=== PATIENT | male | born 1995 | race Two or more races ===

== ENCOUNTER 2019-01-25 16:43 | Emergency (ER) | payer SELFPAY ==
[~2019-01-25] VITALS: Ht 180.3 cm; Wt 86.2 kg
[2019-01-25 17:13] VITALS: BP 124/70
[2019-01-25] MEDS ORDERED: Ketorolac 30mg Inj IV ONE (17:30)
[2019-01-25 18:20] LABS: APPEARANCE,URINE CLEAR; BILIRUBIN, URINE NEGATIVE (NEGATIVE); COLOR,URINE PALE YELLOW; GLUCOSE, URINE (UA) NEGATIVE (NEGATIVE); KETONES,URINE NEGATIVE (NEGATIVE); LEUKOCYTE ESTERASE ,URINE 1+ (NEGATIVE); NITRITE,URINE NEGATIVE (NEGATIVE); PH,URINE 6 (4.5-8.0); PROTEIN,URINE NEGATIVE (NEGATIVE); UROBILINOGEN,URINE NORMAL MG/DL (0.0-1.0)
[2019-01-25 18:23] LABS: ANION GAP 6 mmol/L (5-15); BLOOD UREA NITROGEN 21 mg/dL (7-18); CALCIUM 9.1 MG/DL (8.5-10.1); CARBON DIOXIDE 29 MMOL/L (21-32); CHLORIDE 102 MMOL/L (98-107); CREATININE 0.9 MG/DL (0.55-1.30); POTASSIUM 3.8 MMOL/L (3.5-5.1); SODIUM 137 MMOL/L (136-145)
[2019-01-25 18:26] LABS: BASOPHILS % (AUTO) 1.9 % (0.0-2.0); EOSINOPHILS % (AUTO) 7.1 % (0.0-3.0); HEMATOCRIT 44.2 % (42.0-52.0); HEMOGLOBIN 15.3 G/DL (14.2-18.0); LYMPHOCYTES % (AUTO) 31.9 % (20.0-45.0); MEAN CORPUSCULAR VOLUME 88 FL (80-99); MONOCYTES % (AUTO) 10.2 % (1.0-10.0); NEUTROPHILS % (AUTO) 48.9 % (45.0-75.0); PLATELET COUNT 244 K/UL (150-450); RED BLOOD COUNT 5.04 M/UL (4.70-6.10); RED CELL DISTRIBUTION WIDTH 12.1 % (11.6-14.8); WHITE BLOOD COUNT 7.3 K/UL (4.8-10.8)
[2019-01-25 18:33] LABS: ALANINE AMINOTRANSFERASE 41 U/L (12-78); ALBUMIN 4.1 G/DL (3.4-5.0); ALBUMIN/GLOBULIN RATIO 1.2 (1.0-2.7); ALKALINE PHOSPHATASE 68 U/L (46-116); ASPARTATE AMINO TRANSFERASE 25 U/L (15-37); BILIRUBIN,TOTAL 0.5 MG/DL (0.2-1.0)
[2019-01-25] MEDS ORDERED: TYLENOL EXTRA500 MG ORAL (18:46)
[2019-01-25] MEDS ORDERED: ROBAXIN-500MG ORAL (18:46)
[2019-01-25] MEDS ORDERED: LIDODERM700 M1 TOPIC (18:46)
--- NOTE | 2019-01-25 18:46 | Emergency Room Report ---
History of Present Illness General Chief Complaint: Abdominal Pain Source: Patient Present Illness HPI 23-year-old male with no significant past medical history here complaining of 2 months of right-sided low back pain rating it 5 out of 10, intermittent, with no radiation. Denies any fall or injury, or strenuous physical activity. Has not taken medication for symptom relief. Also complains of 1 week of diffuse abdominal pain mainly in the epigastric and right lower quadrant. Denies nausea and vomiting, acid reflux, diarrhea and constipation. Denies blood in stool. Reports that he often feels fluctuant and consumes a lot of street food especially tacos. Denies fever and chills, recent travel, does admit to daily tobacco smoking marijuana use. Denies alcohol intake. Denies urinary symptoms. Patient appears to be under the influence of unknown substance. Vitals are within normal limits. After I was about to discharge the patient patient also mentions that he has recently been sexually active unprotected, denies any vaginal discharge however complains of feeling weird and as if something is off when he is urinating. He request to be treated for chlamydia and gonorrhea but is unsure if his sexual partner is positive for any sexually transmitted diseases. Allergies: Coded Allergies: PENICILLINS (Verified Allergy, Unknown, 01/25/19) Patient History Past Medical History: see triage record Past Surgical History: none Pertinent Family History: none Social History: Reports: smoking - daily tobacco smoke, drug use - marijuana Immunizations: UTD Reviewed Nursing Documentation: PMH: Agreed; PSxH: Agreed Nursing Documentation-PMH Past Medical History: No History, Except For Hx Asthma: Yes Review of Systems All Other Systems: negative except mentioned in HPI Physical Exam Vital Signs Date Time Temp Pulse Resp B/P (MAP) Pulse Ox O2 Delivery O2 Flow Rate FiO2 01/25/19 16:52 97.9 74 16 124/70 (88) 98 Room Air Sp02 EP Interpretation: reviewed, normal General Appearance: no apparent distress, alert, GCS 15, non-toxic Head: normocephalic, atraumatic Eyes: bilateral eye normal inspection, bilateral eye PERRL ENT: hearing grossly normal, normal pharynx, no angioedema, normal voice Neck: full range of motion, supple, no meningismus, supple/symm/no masses Respiratory: chest non-tender, lungs clear, normal breath sounds, no rhonchi, no respiratory distress, no retraction, no wheezing, speaking full sentences Cardiovascular #1: regular rate, rhythm, no edema, no JVD Gastrointestinal: normal bowel sounds, non tender, soft, no mass, no organomegaly, no peritonitis, no bruit, non-distended, no guarding, no hernia, no pulsatile mass, no rebound Rectal: deferred Genitourinary: no CVA tenderness Musculoskeletal: back normal, normal range of motion, no calf tenderness, gait/ station normal, non-tender Neurologic: alert, motor strength/tone normal, oriented x3, sensory intact, responsive, speech normal Psychiatric: judgement/insight normal, memory normal, mood/affect normal, no suicidal/homicidal ideation Skin: no rash Lymphatic: no adenopathy Medical Decision Making PA Attestation All my diagnosis and treatment plans were reviewed ad discussed with my supervising physician Dr. Boucher Diagnostic Impression: Primary Impression: Abdominal pain Additional Impression: Muscle strain ER Course 23-year-old male with no significant past medical history here complaining of 2 months of right-sided low back pain rating it 5 out of 10, intermittent, with no radiation. Denies any fall or injury, or strenuous physical activity. Has not taken medication for symptom relief. Also complains of 1 week of diffuse abdominal pain mainly in the epigastric and right lower quadrant. Denies nausea and vomiting, acid reflux, diarrhea and constipation. Denies blood in stool. Reports that he often feels fluctuant and consumes a lot of street food especially tacos. Denies fever and chills, recent travel, does admit to daily tobacco smoking marijuana use. Denies alcohol intake. Denies urinary symptoms. Patient appears to be under the influence of unknown substance. Vitals are within normal limits. After I was about to discharge the patient patient also mentions that he has recently been sexually active unprotected, denies any vaginal discharge however complains of feeling weird and as if something is off when he is urinating. He request to be treated for chlamydia and gonorrhea but is unsure if his sexual partner is positive for any sexually transmitted diseases. Ddx considered but are not limited to: appendicitis, cholecystis, gastritis, gastroenteritis, UTI, hepatomegaly, pyelonephritis, muscle strain Vital signs: are WNL, pt. is afebrile H&PE are most consistent with: Abdominal pain most likely secondary to hyperemesis cannabis, muscle strain, encounter for sexually transmitted diseases and prophylactic treatment for chlamydia and gonorrhea ORDERS: CBC, CMP, UA, lipase, urine tox screen, Tylenol, Robaxin, lidocaine patch ED INTERVENTIONS: NS bolus, Toradol, Zofran, Pepcid DISCHARGE: At this time pt. is stable for d/c to home. Will provide printed patient care instructions, and any necessary prescriptions. Care plan and follow up instructions have been discussed with the patient prior to discharge. Patient take [id number] omeprazole, also avoid eating street food also follow-up with her primary care provider for H. pylori testing. Patient reported that he wanted to be treated for possible chlamydia rhinorrhea and did not want to go to [facility]. Patient was given the option to be provided with a list of STD clinics that he could go to. Also patient replied that he kind of has a penile discharge but is unsure. I advised patient to stop smoking marijuana and it is the cause of his abdominal pain. Low back pain secondary to muscle strain, pyelonephritis was ruled out at this time, and no x-rays necessary as patient no fall or injure his back directly. Also since liver enzymes are within normal limit and no need for CT scan of abdomen. No clinical symptoms to suggest patient could be having an acute intra -abdominal issue to be requiring CT scan Last Vital Signs Date Time Temp Pulse Resp B/P (MAP) Pulse Ox O2 Delivery O2 Flow Rate FiO2 01/25/19 17:13 97.9 74 16 124/70 98 Room Air Disposition: HOME, SELF-CARE Condition: Stable Scripts Lidocaine Patch* (Lidoderm Patch*) 1 Each Adh..patch 1 PATCH TOPIC DAILY, #7 PATCH 0 Refills Patch(es) may remain in place for up to 12 hours in any 24-hour period. Prov: Yue Monreal 01/25/19 Methocarbamol* (ROBAXIN-500*) 500 Mg Tablet 500 MG ORAL TID PRN for For Pain, #15 TAB 0 Refills Prov: Yue Monreal 01/25/19 Acetaminophen* (TYLENOL EXTRA STRENGTH*) 500 Mg Tablet 500 MG ORAL Q8H PRN for Prn Headache/Temp > 101, #30 TAB 0 Refills Prov: Yue Monreal 01/25/19 Referrals: NOT CHOSEN IPA/MD,REFERRING (PCP) Patient Instructions: Abdominal Pain, Adult, Muscle Strain, [id number] Additional Instructions: Take medication as directed, follow-up with your primary care provider, if worsening symptoms return to emergency room. Have your primary care physician testing for H. pylori Yue Monreal Jan 25, 2019 18:46
[2019-01-25] MEDS ORDERED: Lidocaine 1% MPF 10mg/ml 5ml INJ ONE (19:15)
[2019-01-25] MEDS ORDERED: Azithromycin 250mg tab ORAL ONE (19:15)
[2019-01-25 19:23] VITALS: BP 124/70
--- NOTE | 2019-01-25 19:24 | NUR ---
ED Nurse Note: Pt cleared by ERMD for discharge. DC instructions/prescription was given and explained to pt and verbalized understanding of teachings. All medical deviecs such as ID band and IV line removed. Pt is AAO x4, ambulatory and left with all personal belongings.
== END 2019-01-25 19:23 | disposition home or self-care (01) ==
LOC: EMR 17:20
DX: M54.5 Low back pain (principal); T14.8XXA Other injury of unspecified body region, initial encounter; X58.XXXA Exposure to other specified factors, initial encounter; Y92.9 Unspecified place or not applicable; Z88.0 Allergy status to penicillin
CPT/HCPCS: 36415; 80053; 80307; 81003; 83690; 85025; 96361; 96372; 96374; 96375; 99284; J0696; J1885; J7030

== ENCOUNTER 2019-03-19 19:35 | Emergency (ER) | payer MEDICAID ==
[~2019-03-19] VITALS: Ht 167.6 cm; Wt 90.7 kg
[~2019-03-19 19:35] MED LIST: CAPSAICIN42.5 GM TP; IBUPROFEN600 MG ORAL; LIDODERM700 M1 TOPIC; ROBAXIN-500MG ORAL; TYLENOL EXTRA500 MG ORAL
[2019-03-19 19:46] VITALS: BP 135/77
[2019-03-19 20:16] LABS: APPEARANCE,URINE CLEAR; BILIRUBIN, URINE NEGATIVE (NEGATIVE); COLOR,URINE PALE YELLOW; GLUCOSE, URINE (UA) NEGATIVE (NEGATIVE); KETONES,URINE NEGATIVE (NEGATIVE); LEUKOCYTE ESTERASE ,URINE NEGATIVE (NEGATIVE); NITRITE,URINE NEGATIVE (NEGATIVE); PH,URINE 7 (4.5-8.0); PROTEIN,URINE NEGATIVE (NEGATIVE); UROBILINOGEN,URINE NORMAL MG/DL (0.0-1.0)
--- NOTE | 2019-03-19 20:29 | Emergency Room Report ---
History of Present Illness General Chief Complaint: Male Urogenital Problems Source: Patient Present Illness HPI 23-year-old male with no significant medical history here complaining of 1 week of penile discharge appears clear. Denies dysuria, urinary frequency and urgency. Reports that he sexually. That he went to a different clinic 1 week ago, was tested for different sexually transmitted diseases and was tested negative. Patient was given 2 tablets of azithromycin which reports did not help him. Patient has not yet been seen by primary care provider and has not been seen by urologist. Denies any new sexual encounter since onset of his symptoms. Denies penile lesions. Allergies: Coded Allergies: PENICILLINS (Verified Allergy, Unknown, 01/25/19) Patient History Past Medical History: see triage record Past Surgical History: none Pertinent Family History: none Immunizations: UTD Reviewed Nursing Documentation: PMH: Agreed; PSxH: Agreed Nursing Documentation-PMH Past Medical History: No Stated History Hx Cardiac Problems: No Hx Hypertension: No Hx Pacemaker: No Hx Asthma: No Hx COPD: No Hx Diabetes: No Hx Cancer: No Hx Gastrointestinal Problems: No Hx Dialysis: No History Of Psychiatric Problem: No Hx Neurological Problems: No Hx Cerebrovascular Accident: No Hx Seizures: No Review of Systems All Other Systems: negative except mentioned in HPI Physical Exam Vital Signs Date Time Temp Pulse Resp B/P (MAP) Pulse Ox O2 Delivery O2 Flow Rate FiO2 03/19/19 19:41 98.2 84 17 135/77 (96) 98 Room Air Sp02 EP Interpretation: reviewed, normal General Appearance: no apparent distress, alert, GCS 15, non-toxic Head: normocephalic, atraumatic Eyes: bilateral eye normal inspection, bilateral eye PERRL ENT: hearing grossly normal, normal pharynx, no angioedema, normal voice Neck: full range of motion, supple/symm/no masses Respiratory: chest non-tender, lungs clear, normal breath sounds, no rhonchi, speaking full sentences Cardiovascular #1: regular rate, rhythm, no edema, no JVD, no murmur Gastrointestinal: normal bowel sounds, non tender, soft, non-distended, no guarding, no rebound Rectal: deferred Genitourinary: no CVA tenderness Musculoskeletal: back normal Neurologic: alert, motor strength/tone normal, oriented x3, sensory intact, responsive, speech normal Psychiatric: judgement/insight normal, memory normal, mood/affect normal, no suicidal/homicidal ideation Skin: no rash Lymphatic: no adenopathy Medical Decision Making PA Attestation All my diagnosis and treatment plans were reviewed ad discussed with my supervising physician Dr. Galvez Diagnostic Impression: Primary Impression: Penile discharge ER Course 23-year-old male with no significant medical history here complaining of 1 week of penile discharge appears clear. Denies dysuria, urinary frequency and urgency. Reports that he sexually. That he went to a different clinic 1 week ago, was tested for different sexually transmitted diseases and was tested negative. Patient was given 2 tablets of azithromycin which reports did not help him. Patient has not yet been seen by primary care provider and has not been seen by urologist. Denies any new sexual encounter since onset of his symptoms. Denies penile lesions. Ddx considered but are not limited to: UTI, chlamydia, gonorrhea, penile discharge Vital signs: are WNL, pt. is afebrile H&PE are most consistent with: Mostly secondary to chlamydia and gonorrhea ORDERS: UA, urine cx, doxycycline, patient agrees to be prophylactically treated for chlamydia and gonorrhea ED INTERVENTIONS: Rocephin IM DISCHARGE: At this time pt. is stable for d/c to home. Will provide printed patient care instructions, and any necessary prescriptions. Care plan and follow up instructions have been discussed with the patient prior to discharge. Patient to follow-up with urologist, if worsening symptoms return to emergency room. Last Vital Signs Date Time Temp Pulse Resp B/P (MAP) Pulse Ox O2 Delivery O2 Flow Rate FiO2 03/19/19 19:46 98.2 88 17 135/77 98 Room Air Disposition: HOME, SELF-CARE Condition: Stable Scripts Doxycycline Hyclate (DOXYCYCLINE HYCLATE) 100 Mg Capsule 100 MG PO BID for 7 Days, #14 CAP Prov: Yue Monreal 03/19/19 Patient Instructions: Chlamydia, Male, Gonorrhea Additional Instructions: Take medication as directed, follow-up with your primary doctor for referral to urologist if symptoms continue to be bothersome. If worsening symptoms return to the emergency room Yue Monreal Mar 19, 2019 20:29
[2019-03-19] MEDS ORDERED: Lidocaine 1% MPF 10mg/ml 5ml INJ ONE (20:30)
[2019-03-19] MEDS ORDERED: DOXYCYCLINE HY100 M2 PO (20:39)
[2019-03-19 20:43] VITALS: BP 135/77
== END 2019-03-19 20:43 | disposition home or self-care (01) ==
LOC: EMR 20:00
DX: R36.9 Urethral discharge, unspecified (principal); Z88.0 Allergy status to penicillin
CPT/HCPCS: 81003; 96372; 96374; J0696; Z7502; 99284

== ENCOUNTER 2019-07-06 01:26 | Emergency (ER) | payer MEDICAID ==
[~2019-07-06] VITALS: Ht 175.3 cm; Wt 90.7 kg
[~2019-07-06 01:26] MED LIST changes: +DOXYCYCLINE HY100 M2 PO
[2019-07-06 01:49] VITALS: BP 124/84
--- NOTE | 2019-07-06 01:49 | NUR ---
ED Nurse Note: pt ambulated into ed from home CO s/p right shoulder dislocation. Pt ROM on affected arm significantly affected as pt unable to lift arm. Pt denies tingling or numbness. Pt stated that he felt it "pop out of place" at approx 0100. Deformity noted at affected area. Pt aao x 4, ambulates with steady gait. Pt states this is a recurring injury to same shoulder. Awaiting ERMD at bedside.
--- NOTE | 2019-07-06 01:53 | NUR ---
ED Nurse Note: ERMD at bedside
--- NOTE | 2019-07-06 01:53 | Emergency Room Report ---
History of Present Illness General Chief Complaint: Upper Extremity Injury Source: Patient Present Illness HPI This a 23-year-old male who is right-hand dominant. He presents with chief complaint of right shoulder dislocation. He had dislocated twice in the past. He was sleeping and when he rollover he fell but dislocated. This occurred just prior to arrival. Pain is 8 out of 10. Worse with movement. Better with rest. No other injury. Did not pass out. Denies any other complaint. Allergies: Coded Allergies: PENICILLINS (Verified Allergy, Unknown, 01/25/19) COVID-19 Screening Contact w/high risk pt: No Recent Travel to affected area: No Experienced COVID-19 symptoms?: No COVID-19 Testing performed BUSINESS ASSISTANT: No Patient History Past Medical History: see triage record, old chart reviewed Past Surgical History: none Pertinent Family History: none Social History: Denies: smoking Immunizations: other Reviewed Nursing Documentation: PMH: Agreed; PSxH: Agreed Nursing Documentation-PMH Past Medical History: No Stated History Hx Cardiac Problems: No Hx Hypertension: No Hx Pacemaker: No Hx Asthma: No Hx COPD: No Hx Diabetes: No Hx Cancer: No Hx Gastrointestinal Problems: No Hx Dialysis: No Hx Neurological Problems: No Hx Cerebrovascular Accident: No Hx Seizures: No Review of Systems Eye: Denies: eye pain, blurred vision ENT: Denies: ear pain, nose congestion, throat swelling Respiratory: Denies: cough, shortness of breath Cardiovascular: Denies: chest pain, palpitations Gastrointestinal: Denies: abdominal pain, diarrhea, nausea, vomiting Musculoskeletal: Reports: joint pain; Denies: back pain Skin: Denies: rash Neurological: Denies: headache, numbness Endocrine: Denies: increased thirst, increased urine Hematologic/Lymphatic: Denies: easy bruising All Other Systems: negative except mentioned in HPI Physical Exam Vital Signs Date Time Temp Pulse Resp B/P (MAP) Pulse Ox O2 Delivery O2 Flow Rate FiO2 07/06/19 01:39 98.2 75 16 124/84 (97) 97 Room Air Vitals normal Sp02 EP Interpretation: reviewed, normal General Appearance: well appearing, no apparent distress, alert Head: normocephalic, atraumatic Eyes: bilateral eye PERRL, bilateral eye EOMI ENT: hearing grossly normal, normal pharynx Neck: full range of motion, supple, no meningismus Respiratory: chest non-tender, lungs clear, normal breath sounds Cardiovascular #1: regular rate, rhythm, no murmur Gastrointestinal: normal bowel sounds, non tender, no mass, no organomegaly, no bruit, non-distended Musculoskeletal: back normal, gait/station normal, other - Right shoulder: Mild deformity consistent with anterior dislocation. Sensation over the axillary nerve intact. Elbow nontender. Wrist nontender. Pulse normal. Psychiatric: mood/affect normal Procedures Splinting Splinting : Consent: Verbal Location: Right shoulder Pre-Made Type: Immobilizer, shoulder Pre-Proc Neuro Vasc Exam: normal Post-Proc Neuro Vasc Exam: normal Patient Tolerated: Well Complications: None Joint Reduction Joint Reduction : Consent: Verbal Joint Reduction Site: shoulder (R) Procedural Sedation: No Reduction Attempts: One Pre-Procedure NV Exam: Yes Post-Procedure NV Exam: Yes Post Joint Reduction Film: joint reduced Patient Tolerated: Well Complications: None Progress I did an intra-articular injection with 1% lidocaine without epinephrine. 10 cc was injected. After a few minute, I reduce the joint with gentle external rotation. Shoulder reduced without any problem. Patient tolerated procedure without any issue. Medical Decision Making Diagnostic Impression: Primary Impression: Anterior shoulder dislocation Qualified Codes: S43.014A - Anterior dislocation of right humerus, initial encounter ER Course Patient with an anterior shoulder dislocation. No fracture or nerve injury. Will discharge home. Other X-Ray Diagnostic Results Other X-Ray Diagnostic Results #1: X-Ray ordered: Right shoulder x-rays # of Views/Limited Vs Complete: 3 View Indication: Pain EP Interpretation: Yes Interpretation: no soft tissue swelling, no fractures, other - Anterior shoulder dislocation Impression: Other - Anterior shoulder dislocation Electronically Signed by: Philip Saba MD Other X-Ray Diagnostic Results #2: X-Ray ordered: Rt shoulder # of Views/Limited Vs Complete: 2 View Indication: Pain EP Interpretation: Yes Interpretation: no dislocation, no soft tissue swelling, no fractures, other - mild subluxation Impression: Other - s/p reduction Electronically Signed by: Philip Saba MD Last Vital Signs Date Time Temp Pulse Resp B/P (MAP) Pulse Ox O2 Delivery O2 Flow Rate FiO2 07/05/20 01:39 98.2 75 16 124/84 (97) 97 Room Air Status: improved Disposition: HOME, SELF-CARE Condition: Stable Scripts Hydrocodone/Acetaminophen 5-325* (HYDROCODONE/ACETAMINOPHEN 5-325*) 1 Each Tablet 1 TAB ORAL Q6H PRN for For Pain, #15 TAB 0 Refills Prov: Philip Saba MD 07/06/19 Ibuprofen* (MOTRIN*) 600 Mg Tablet 600 MG ORAL Q8H PRN for FOR PAIN, #30 TAB 0 Refills Prov: Philip Saba MD 07/06/19 Additional Instructions: Follow-up with your doctor in 7 days. You may need referral to see orthopedic doctor for orthoscopic surgery. Return if symptoms worsen. Philip Saba MD July 06, 2019 01:53
--- NOTE | 2019-07-06 01:55 | NUR ---
ED Nurse Note: xray at bedside
[2019-07-06] MEDS ORDERED: HYDROcodone/Acetamin 5/325 tab ORAL ONE (02:00)
--- NOTE | 2019-07-06 02:10 | NUR ---
ED Nurse Note: ERMD at bedside
--- NOTE | 2019-07-06 02:12 | NUR ---
ED Nurse Note: xray at bedside.
--- NOTE | 2019-07-06 02:24 | NUR ---
ED Nurse Note: Pt placed in immobilizer per ERMD
[2019-07-06] MEDS ORDERED: IBUPROFEN600 M1 ORAL (02:25)
[2019-07-06] MEDS ORDERED: HYDROCODON-ACE1 EA15 ORAL (02:25)
[2019-07-06 02:30] VITALS: BP 124/84
--- NOTE | 2019-07-06 02:30 | NUR ---
ER DISCHARGE NOTE: Patient is cleared to be discharged home per ERMD, pt is aox4, 98% on room air, with stable vital signs. pt was given dc and prescription instructions, pt was able to verbalize understanding, pt id band removed. pt is able to ambulate with steady gait. pt took all belongings.
--- NOTE | 2019-07-06 04:12 | Diagnostic Imaging Report ---
EXAM: XR Right Shoulder Complete, 2 or More Views CLINICAL HISTORY: TRAUMA TECHNIQUE: Two or more views of the right shoulder. COMPARISON: None available. FINDINGS: Bones/joints: Anterior-inferior right humeral head dislocation. No fracture radiographically apparent. Soft tissues: Unremarkable. IMPRESSION: Anterior-inferior right humeral head dislocation. No fracture radiographically apparent.
--- NOTE | 2019-07-06 04:14 | Diagnostic Imaging Report ---
EXAM: XR Right Shoulder Complete, 2 or More Views CLINICAL HISTORY: PAIN TECHNIQUE: Two or more views of the right shoulder. COMPARISON: Earlier same day right shoulder radiographs FINDINGS: Bones/joints: Interval reduction of the right humeral head dislocation. No acute fracture. Soft tissues: Unremarkable. IMPRESSION: Interval reduction of the right humeral head dislocation. No apparent fracture.
== END 2019-07-06 02:30 | disposition home or self-care (01) ==
LOC: EMR 01:35
DX: S43.014A Anterior dislocation of right humerus, initial encounter (principal); Y93.84 Activity, sleeping; Z88.0 Allergy status to penicillin
CPT/HCPCS: 23650; 73030; Z7502; 99283